=== PATIENT | female | born 1960 | race Caucasian/White ===

== ENCOUNTER 2016-03-19 15:21 | Outpatient (CLI) | END 2016-03-19 15:22 | disposition home or self-care (01) ==

== ENCOUNTER 2016-06-25 08:24 | Outpatient (CLI) | payer OTHER | END 2016-06-25 08:25 | disposition home or self-care (01) | DX: Z12.31 Encounter for screening mammogram for malignant neoplasm of breast (principal) ==

== ENCOUNTER 2016-12-15 11:19 | Outpatient (CLI) | payer OTHER ==
[2016-12-15 11:39] LABS: BASOPHILS % (AUTO) 0.4 %; EOSINOPHILS % (AUTO) 0.6 %; HCT - HEMATOCRIT 40.3 % (37.0-47.0); HGB - HEMOGLOBIN 13.6 g/dL (12.0-16.0); LYMPHOCYTES # (AUTO) 1.7 10^3/uL (1.5-3.5); MEAN CORPUSCULAR HEMOGLOBIN 30.1 pg (27.0-31.0); MEAN CORPUSCULAR HGB CONC 33.8 g/dL (32.0-36.0); MEAN CORPUSCULAR VOLUME 89.1 fL (81.0-99.0); MEAN PLATELET VOLUME 7.3 fL (7.9-10.8); MONOCYTES # (AUTO) 0.4 10^3/uL (0.0-1.0); MONOCYTES % (AUTO) 4.4 %; NEUTROPHILS # (AUTO) 6.6 10^3/uL (1.5-6.6); NEUTROPHILS % (AUTO) 75.6 %; NUCLEATED RED BLOOD CELLS AUTO 0.1 /100WBC; RED BLOOD COUNT 4.53 10^6/uL (4.20-5.40); RED CELL DISTRIBUTION WIDTH 12.6 % (12.0-15.0); UNCORRECTED WHITE BLOOD COUNT 8.8 x10^3/uL; WHITE BLOOD COUNT 8.8 x10^3/uL (4.8-10.8)
[2016-12-15 11:58] LABS: ALBUMIN/GLOBULIN RATIO 1.4 (1.0-2.2); BILIRUBIN,TOTAL 0.8 mg/dL (0.2-1.0); CALCIUM 9.3 mg/dL (8.5-10.3); CREATININE 0.9 mg/dL (0.4-1.0); TOTAL PROTEIN 7.8 g/dL (6.7-8.2)
== END 2016-12-15 11:20 | disposition home or self-care (01) ==
LOC: LAB 11:19
PROVIDERS: ATTEND Family Medicine
DX: R07.89 Other chest pain (principal)
CPT/HCPCS: 36415; 80053; 84484; 85025

== ENCOUNTER 2017-12-05 07:10 | Outpatient (CLI) | payer OTHER ==
[2017-12-05 07:28] LABS: BASOPHILS % (AUTO) 0.3 %; EOSINOPHILS % (AUTO) 0.8 %; LYMPHOCYTES # (AUTO) 1.7 10^3/uL (1.5-3.5); LYMPHOCYTES % (AUTO) 33.7 %; MEAN CORPUSCULAR HEMOGLOBIN 30.3 pg (27.0-31.0); MEAN CORPUSCULAR HGB CONC 33.8 g/dL (32.0-36.0); MEAN CORPUSCULAR VOLUME 89.8 fL (81.0-99.0); MEAN PLATELET VOLUME 7.5 fL (7.9-10.8); MONOCYTES # (AUTO) 0.4 10^3/uL (0.0-1.0); MONOCYTES % (AUTO) 7.5 %; NEUTROPHILS # (AUTO) 2.9 10^3/uL (1.5-6.6); NEUTROPHILS % (AUTO) 57.7 %; PLT - PLATELET COUNT 205 10^3/uL (130-450); RED BLOOD COUNT 4.61 10^6/uL (4.20-5.40); RED CELL DISTRIBUTION WIDTH 12.8 % (12.0-15.0)
[2017-12-05 07:42] LABS: ALBUMIN 4.5 g/dL (3.2-5.5); ALBUMIN/GLOBULIN RATIO 1.4 (1.0-2.2); ALKALINE PHOSPHATASE 51 IU/L (42-121); ALT ALANINE AMINOTRANSFERASE 19 IU/L (10-60); AST ASPARTATE AMINOTRANSFERASE 21 IU/L (10-42); BILIRUBIN,TOTAL 0.6 mg/dL (0.2-1.0); BUN - BLOOD UREA NITROGEN 12 mg/dL (6-20); CALCIUM 9.2 mg/dL (8.5-10.3); CARBON DIOXIDE - CO2 31 mmol/L (21-32); CHLORIDE 103 mmol/L (101-111); CHOLESTEROL 191 mg/dL; CREATININE 0.8 mg/dL (0.4-1.0); GFR - MDRD 74 (>89); GLUCOSE 112 mg/dL (70-100); HDL CHOLESTEROL 48 mg/dL; LDL CHOLESTEROL,CALCULATED 123 mg/dL; LDL/HDL RATIO 2.6 (<4.4); SODIUM 141 mmol/L (135-145); TOTAL PROTEIN 7.8 g/dL (6.7-8.2); VLDL CHOLESTEROL 20 mg/dL
[2017-12-05 08:03] LABS: HEMOGLOBIN A1C 0.55 g/dL; HEMOGLOBIN A1C % 5.5 % (4.6-6.2)
== END 2017-12-05 07:11 | disposition home or self-care (01) ==
LOC: LAB 07:10
PROVIDERS: ATTEND Family Medicine
DX: Z00.00 Encounter for general adult medical examination without abnormal findings (principal); R73.01 Impaired fasting glucose
CPT/HCPCS: 36415; 80053; 80061; 83036; 83721; 84443; 85025

== ENCOUNTER 2018-02-24 09:40 | Outpatient (CLI) | payer OTHER ==
[2018-02-24] MEDS ORDERED: AMINOPHYLLINE 250 MG/10 ML VIAL IV ONE (09:41)
[2018-02-24] MEDS ORDERED: REGADENOSON 0.4 MG/5 ML SYRINGE IVP ONE ×2 (12:03→16:00)
--- NOTE | 2018-02-24 14:38 | CARDIAC PROCEDURE NOTE ---
DATE OF SERVICE: 02/24/2018 Physician: Iva Morris MD, [facility] INDICATION: Chest pain. CARDIAC RISK FACTORS 1. Former smoker. 2. Possible postmenopausal status. SUMMARY: After signing informed consent, the patient underwent a Lexiscan pharmaceutical stress test with nuclear myocardial perfusion imaging. Resting heart rate: 56, Peak heart rate: 83. Resting blood pressure: 110/72, Peak blood pressure: 118/65. The patient underwent Lexiscan infusion per protocol. She developed headache and nausea symptoms. There was no chest pain or shortness of breath. Aminophylline 50 mg IV was given in recovery to reverse her symptoms. RESTING EKG: Sinus bradycardia at a rate of 52, QS waves V1 and V2, ST segment depressions in leads III and aVF, biphasic/flat T-waves in leads III, F, and V4 through V6. PEAK EKG: New T-wave inversion in leads V4 through V6. These changes reverted to baseline after 5 minutes. IMPRESSION 1. Abnormal resting EKG with possible old anteroseptal myocardial infarction. 2. Ischemic changes by EKG criteria on this pharmaceutical stress test. 3. Nuclear images reported separately. cc: Mian Cook DO TD: 02/24/2018 14:19 MTDD
--- NOTE | 2018-02-24 16:25 | Nuclear Medicine Report ---
Reason: CHEST PAIN Procedure Date: 02/24/2018 Accession Number: [id number] / [id number] Procedure: NM - Myocardial Perfusion STR/RST CPT Code: FULL RESULT: EXAM: SINGLE-ISOTOPE PHARMACOLOGICAL STRESS TEST WITH REGADENOSON. SINGLE-ISOTOPE AND ONE-DAY REST/STRESS MYOCARDIAL PERFUSION SCANS WITH TOMOGRAPHIC IMAGING, QUANTITATIVE ANALYSIS, WALL MOTION ANALYSIS AND CALCULATION OF EJECTION FRACTION. EXAM DATE: 02/24/2018 04:02 PM. CLINICAL HISTORY: CHEST PAIN. COMPARISON: None. TECHNIQUE: After the intravenous administration of 10.8 mCi of Tc-99m sestamibi, a rest myocardial perfusion scan was done with tomography. Motion correction was applied when appropriate. After an appropriate delay, pharmacological stress was performed with the infusion of 0.4 mg regadenoson per protocol. According to protocol, 42.9 mCi of Tc-99m sestamibi was injected for stress myocardial perfusion scan. Motion correction was applied when appropriate. Gated tomographic images were obtained for wall motion analysis and computation of left ventricular ejection fraction. FINDINGS: There is a moderate severity fixed defect in the mid to distal anterior wall. No additional convincing fixed or reversible perfusion defects. Computer analysis: Summed stress score 8 Summed rest score 1 Summed difference score 7 Wall motion analysis demonstrates no focal wall motion abnormality. The left ventricular end-diastolic volume is 74 cc. The left ventricular end-systolic volume is 24 cc. The left ventricular ejection fraction is calculated to be 67%. IMPRESSION: 1. Moderate severity fixed defect in the mid to distal anterior wall. No additional convincing fixed or reversible perfusion defects on visual analysis. 2. Left ventricular ejection fraction of 67%. 3. Normal segmental and global wall motion. 4. Normal left ventricular cavity size, no change with stress. 5. Based on computer analysis, mildly abnormal study with moderate ischemia. RADIA
== END 2018-02-24 09:41 | disposition home or self-care (01) ==
LOC: DI 09:40
PROVIDERS: ATTEND Family Medicine
DX: R07.9 Chest pain, unspecified (principal); R94.31 Abnormal electrocardiogram [ECG] [EKG]
CPT/HCPCS: 78452; 93017; A9500; J2785

== ENCOUNTER 2019-01-12 07:13 | Outpatient (CLI) | payer OTHER ==
[2019-01-12 07:53] LABS: ALBUMIN 4.4 g/dL (3.2-5.5); ALBUMIN/GLOBULIN RATIO 1.4 (1.0-2.2); ALKALINE PHOSPHATASE 58 IU/L (42-121); ALT ALANINE AMINOTRANSFERASE 21 IU/L (10-60); AST ASPARTATE AMINOTRANSFERASE 20 IU/L (10-42); BILIRUBIN,TOTAL 0.6 mg/dL (0.2-1.0); BUN - BLOOD UREA NITROGEN 16 mg/dL (6-20); CALCIUM 8.9 mg/dL (8.5-10.3); CARBON DIOXIDE - CO2 31 mmol/L (21-32); CHLORIDE 99 mmol/L (101-111); CHOL/HDL RATIO 3.6 (<4.4); CHOLESTEROL 193 mg/dL; CREATININE 0.7 mg/dL (0.4-1.0); GFR - MDRD 86 (>89); GLUCOSE 101 mg/dL (70-100); HDL CHOLESTEROL 54 mg/dL; LDL CHOLESTEROL,CALCULATED 125 mg/dL; LDL/HDL RATIO 2.3 (<4.4); SODIUM 137 mmol/L (135-145); TOTAL PROTEIN 7.6 g/dL (6.7-8.2); VLDL CHOLESTEROL 14 mg/dL
[2019-01-12 07:54] LABS: HB2 TOTAL 14.5 g/dL; HEMOGLOBIN A1C 0.51 g/dL; HEMOGLOBIN A1C % 5.4 % (4.6-6.2)
[2019-01-12 08:01] LABS: BASOPHILS % (AUTO) 0.5 %; EOSINOPHILS # (AUTO) 0.1 10^3/uL (0.0-0.7); EOSINOPHILS % (AUTO) 1.1 %; HGB - HEMOGLOBIN 13.7 g/dL (12.0-16.0); LYMPHOCYTES # (AUTO) 1.6 10^3/uL (1.5-3.5); LYMPHOCYTES % (AUTO) 36.1 %; MEAN CORPUSCULAR HEMOGLOBIN 29.9 pg (27.0-31.0); MEAN CORPUSCULAR HGB CONC 32.1 g/dL (32.0-36.0); MEAN CORPUSCULAR VOLUME 93.2 fL (81.0-99.0); MEAN PLATELET VOLUME 9.4 fL (7.9-10.8); MONOCYTES # (AUTO) 0.3 10^3/uL (0.0-1.0); MONOCYTES % (AUTO) 7.1 %; NEUTROPHILS # (AUTO) 2.4 10^3/uL (1.5-6.6); PLT - PLATELET COUNT 192 10^3/uL (130-450); RED BLOOD COUNT 4.58 10^6/uL (4.20-5.40); RED CELL DISTRIBUTION WIDTH 12.3 % (12.0-15.0); WHITE BLOOD COUNT 4.4 x10^3/uL (4.8-10.8)
== END 2019-01-12 07:14 | disposition home or self-care (01) ==
LOC: LAB 07:13
PROVIDERS: ATTEND Family Medicine
DX: E78.1 Pure hyperglyceridemia (principal); F10.99 Alcohol use, unspecified with unspecified alcohol-induced disorder; R73.01 Impaired fasting glucose
CPT/HCPCS: 36415; 80053; 80061; 83036; 83721; 84443; 85025

== ENCOUNTER 2019-04-04 08:16 | Outpatient (CLI) | payer OTHER ==
--- NOTE | 2019-04-04 11:31 | Mammography Report ---
Reason: ROUTINE MAMMO Procedure Date: 04/04/2019 Accession Number: [id number] / [id number] Procedure: COLLETTE - Screening Mammo w/Willy CPT Code: Final Report FULL RESULT: EXAM: Screening Mammo w/Willy DATE: 04/04/2019 8:53 AM CLINICAL HISTORY: History of benign left breast biopsy. For routine screening. TECHNIQUE: (B) - Bilateral CC and MLO views were obtained. COMPARISON: 06/25/2016, 05/20/2015, 04/04/2014, 06/23/2012, 05/09/2010. PARENCHYMAL PATTERN: (A) - The breasts demonstrate scattered fibroglandular densities bilaterally. FINDINGS: No significant interval change. There are no suspicious masses, calcifications, or areas of distortion. IMPRESSION: Negative examination. BI-RADS category 1. RECOMMENDATION: (ANNUAL) - Recommend routine annual screening mammography. BI-RADS CATEGORY: (1) - Negative. STANDARD QUALIFYING STATEMENTS: 1. This examination was not reviewed with the aid of Computer-Aided Detection (CAD). 2. A negative or benign imaging report should not preclude biopsy if clinically suspicious findings are present. 3. Dense breasts may obscure an underlying neoplasm. 4. This examination was reviewed with the aid of 3D breast imaging (tomosynthesis).
== END 2019-04-04 08:17 | disposition home or self-care (01) ==
LOC: DI 08:16
DX: Z12.31 Encounter for screening mammogram for malignant neoplasm of breast (principal)
CPT/HCPCS: 77063; 77067

== ENCOUNTER 2019-09-30 14:42 | Emergency (ER) | payer OTHER ==
[2019-09-30] MEDS ORDERED: LIDOCAINE OINTMENT 5% 35.44 GM TUBE TOP STA (14:58)
[2019-09-30] MEDS ORDERED: TETANUS/DIPHTHERIA/PERTUSSIS 0.5 ML SYRINGE IM ONE (14:58)
--- NOTE | 2019-09-30 15:00 | ED Physician Documentation ---
PD HPI MAJOR BURN - Stated complaint Stated Complaint: LT HAND INJ - Chief complaint Chief Complaint: Burn - History obtained from History obtained from: Patient (Left-handed woman with unknown tetanus status was working at home and grabbed part of the lawnmower which was hot and has berkowitz on her left hand. Pain is severe but note that she is driving.) Review of Systems Constitutional: reports: Reviewed and negative Throat: reports: Reviewed and negative Cardiac: reports: Reviewed and negative Respiratory: reports: Reviewed and negative PD PAST MEDICAL HISTORY - Past Medical History Psych: Depression - Past Surgical History Past Surgical History: No - Present Medications Home Medications: Ambulatory Orders Medication Instructions Recorded Confirmed PARoxetine [Paxil] 30 mg PO DAILY 09/05/13 03/28/15 Hydrocodone/Acetaminophen 1 - 2 each PO Q6H PRN #10 tablet 09/30/19 [Hydrocodon-Acetaminophen 5-325] - Allergies Allergies/Adverse Reactions: Allergies Allergy/AdvReac Type Severity Reaction Status Date / Time No Known Drug Allergies Allergy Verified 09/30/19 14:46 - Social History Does the pt smoke?: No Smoking Status: Never smoker Does the pt drink ETOH?: No Does the pt have substance abuse?: No - Immunizations Immunizations are current?: Yes PD ED PE NORMAL - Vitals Vital signs reviewed: Yes - General General: Alert and oriented X 3, No acute distress - Extremities Extremities: Other (There is a 1cm round burn on the pulp of the left index finger, second-degree. There is a shallow second-degree burn on the palmar side also about 1 cm near the second MCP. There are scattered areas of first-degree burn on the palm as well.) - Neuro Neuro: Alert and oriented X 3, Normal speech Results - Vitals Vitals: Vital Signs - 24 hr 09/30/19 14:46 Temperature 36.4 C L Heart Rate 70 Respiratory 16 Rate Blood Pressure 142/91 H O2 Saturation 96 Oxygen O2 Source Room air PD MEDICAL DECISION MAKING - ED course ED course: 58-year-old woman with spotty small first and second-degree berkowitz on the left hand. The worst of which is on the pulp of the left index finger but only about 1 cm. We discussed wound care, we updated tetanus, discussed pain control. Departure - Departure Disposition: 01 Home, Self Care Clinical Impression: Burn of hand Qualifiers: Encounter type: initial encounter Burn of hand location: multiple sites Laterality: left Burn degree: partial thickness (2nd degree) Qualified Code(s): T23.292A - Burn of second degree of multiple sites of left wrist and hand, initial encounter Condition: Good Record reviewed to determine appropriate education?: Yes Instructions: ED Burn D 2nd Prescriptions: Hydrocodone/Acetaminophen [Hydrocodon-Acetaminophen 5-325] 1 - 2 each PO Q6H PRN #10 tablet PRN Reason: pain Comments: I suspect you will have excellent healing of the small berkowitz. Expect pain to be significant for a day or 2 but after that you should not need any more prescription pain medication. For wound care you can simply wash with soap and water and keep the worst areas covered with Band-Aids.
[2019-09-30 15:31] VITALS: BP 139/89
== END 2019-09-30 15:37 | disposition home or self-care (01) ==
LOC: ED 14:42
DX: T23.252A Burn of second degree of left palm, initial encounter (principal); T23.222A Burn of second degree of single left finger (nail) except thumb, initial encounter; X19.XXXA Contact with other heat and hot substances, initial encounter; Y93.H2 Activity, gardening and landscaping; Y92.007 Garden or yard of unspecified non-institutional (private) residence as the place of occurrence of the external cause; Z23 Encounter for immunization
CPT/HCPCS: 90471; 90715; 99283; A9270

== ENCOUNTER 2020-01-02 12:18 | Outpatient (CLI) | payer OTHER ==
--- NOTE | 2020-01-02 12:42 | XRAY Report ---
PROCEDURE: Shoulder 2 View LT INDICATIONS: LEFT SHOULDER PAIN TECHNIQUE: 2 views of the shoulder were acquired. COMPARISON: None. FINDINGS: Bones: No acute fractures or dislocations. There are mild hypertrophic osteoarthritic changes of the left acromioclavicular joint. Coracoclavicular and acromioclavicular intervals are maintained. No barger spicious bony lesions. Visualized ribs appear intact. Soft tissues: No suspicious soft tissue calcifications. IMPRESSION: Mild left acromioclavicular osteoarthrosis. Reviewed by: Jeison Sun MD on 01/02/2020 12:41 PM PDT Approved by: Jeison Sun MD on 01/02/2020 12:41 PM PDT Station ID: [id number]
== END 2020-01-02 23:59 | disposition home or self-care (01) ==
LOC: DI.WCP 12:18
PROVIDERS: ATTEND Family Medicine
DX: M19.012 Primary osteoarthritis, left shoulder (principal)

== ENCOUNTER 2020-01-23 08:00 | Outpatient (CLI) | payer OTHER ==
[2020-01-23 12:44] LABS: BASOPHILS % (AUTO) 0.4 %; EOSINOPHILS % (AUTO) 0.8 %; HGB - HEMOGLOBIN 13.1 g/dL (12.0-16.0); LYMPHOCYTES # (AUTO) 1.7 10^3/uL (1.5-3.5); LYMPHOCYTES % (AUTO) 33.8 %; MEAN CORPUSCULAR HEMOGLOBIN 29.8 pg (27.0-31.0); MEAN CORPUSCULAR HGB CONC 31.8 g/dL (32.0-36.0); MEAN CORPUSCULAR VOLUME 93.6 fL (81.0-99.0); MEAN PLATELET VOLUME 9.9 fL (7.9-10.8); MONOCYTES # (AUTO) 0.3 10^3/uL (0.0-1.0); MONOCYTES % (AUTO) 5.9 %; NEUTROPHILS # (AUTO) 2.9 10^3/uL (1.5-6.6); NEUTROPHILS % (AUTO) 58.7 %; PLT - PLATELET COUNT 205 10^3/uL (130-450); RED CELL DISTRIBUTION WIDTH 12.5 % (12.0-15.0); WHITE BLOOD COUNT 4.9 x10^3/uL (4.8-10.8)
[2020-01-23 12:58] LABS: ALBUMIN/GLOBULIN RATIO 1.4 (1.0-2.2); ALKALINE PHOSPHATASE 53 IU/L (42-121); ALT ALANINE AMINOTRANSFERASE 20 IU/L (10-60); AST ASPARTATE AMINOTRANSFERASE 21 IU/L (10-42); BILIRUBIN,TOTAL 0.9 mg/dL (0.2-1.0); BUN - BLOOD UREA NITROGEN 15 mg/dL (6-20); CALCIUM 8.9 mg/dL (8.5-10.3); CARBON DIOXIDE - CO2 28 mmol/L (21-32); CHLORIDE 101 mmol/L (101-111); CHOL/HDL RATIO 3.6 (<4.4); CHOLESTEROL 173 mg/dL; CREATININE 0.7 mg/dL (0.4-1.0); GLUCOSE 91 mg/dL (70-100); HDL CHOLESTEROL 48 mg/dL; LDL CHOLESTEROL,CALCULATED 105 mg/dL; LDL/HDL RATIO 2.2 (<4.4); SODIUM 138 mmol/L (135-145); TOTAL PROTEIN 6.9 g/dL (6.7-8.2); VLDL CHOLESTEROL 20 mg/dL
[2020-01-23 13:54] LABS: HEMOGLOBIN A1c% 5.2 % (4.27-6.07)
== END 2020-01-23 23:59 | disposition home or self-care (01) ==
LOC: LAB.WCP 08:00
PROVIDERS: ATTEND Family Medicine
DX: Z00.00 Encounter for general adult medical examination without abnormal findings (principal); E78.1 Pure hyperglyceridemia
CPT/HCPCS: 36415; 80053; 80061; 83036; 83721; 84443; 85025

== ENCOUNTER 2020-09-14 16:51 | Emergency (ER) | payer OTHER ==
--- NOTE | 2020-09-14 17:49 | XRAY Report ---
PROCEDURE: Foot 3 View RT INDICATIONS: Trauma TECHNIQUE: 3 views of the foot were acquired. COMPARISON: None FINDINGS: Bones: No fractures or dislocations. No suspicious bony lesions. Soft tissues: No tibiotalar joint effusion. Achilles tendon appears normal. IMPRESSION: No evidence acute bony abnormality of the right foot. Reviewed by: Josh Rodrigez MD on 09/14/2020 4:47 PM AKGISSEL Approved by: Josh Rodrigez MD on 09/14/2020 4:47 PM AKDT Station ID: [id number]
--- NOTE | 2020-09-14 18:40 | ED Physician Documentation ---
History of Present Illness - Stated complaint Stated Complaint: RT FOOT PX - Chief complaint Chief Complaint: Trauma Ext - Additonal information Additional information: 59-year-old female Presents to the emergency department for evaluation of acute right foot pain after missing a step and twisting her foot. She did not fall or strike her head. No history of previous injury to the foot. And difficulty bearing weight especially on the medial portion Review of Systems Constitutional: denies: Fever, Chills Eyes: reports: Reviewed and negative Ears: reports: Reviewed and negative Nose: reports: Reviewed and negative Throat: reports: Reviewed and negative Cardiac: reports: Reviewed and negative Respiratory: reports: Reviewed and negative Musculoskeletal: reports: Joint pain (Right foot) PD PAST MEDICAL HISTORY - Past Medical History Cardiovascular: None Respiratory: None Neuro: Migraines Endocrine/Autoimmune: None GI: None MANAGEMENT CONSULTANT: None : None HEENT: None Psych: Depression Musculoskeletal: None Derm: None - Past Surgical History Past Surgical History: Yes /MANAGEMENT CONSULTANT: Other - Present Medications Home Medications: Ambulatory Orders Medication Instructions Recorded Confirmed PARoxetine [Paxil] 30 mg PO DAILY 09/05/13 03/28/15 Hydrocodone/Acetaminophen 1 - 2 each PO Q6H PRN #10 tablet 09/30/19 [Hydrocodon-Acetaminophen 5-325] - Allergies Allergies/Adverse Reactions: Allergies Allergy/AdvReac Type Severity Reaction Status Date / Time No Known Drug Allergies Allergy Verified 09/14/20 17:13 - Social History Does the pt smoke?: No Smoking Status: Former smoker Does the pt drink ETOH?: No Does the pt have substance abuse?: No - Immunizations Immunizations are current?: Yes PD ED PE EXPANDED - Extremities Extremities: Right foot (Mild tenderness in the medial portion of the right foot especially the arch without deformity. No swelling or ecchymosis. Patient is able to bear weight on the ball and heel of her foot but not at the same time. 2+ DP pulse.) Results - Vitals Vitals: Vital Signs - 24 hr 09/14/20 17:10 Temperature 36.3 C L Heart Rate 68 Respiratory 16 Rate Blood Pressure 120/81 H O2 Saturation 97 Oxygen O2 Source Room air - Rads (name of study) right foot Radiology: Final report received (Acute fracture dislocation) PD MEDICAL DECISION MAKING - ED course Complexity details: reviewed results ED course: Acute right foot pain after missing a step. She twisted the foot. X-ray without obvious fracture pathology. Has difficulty bearing weight on the medial portion of the foot. I do suspect sprain over occult fracture. Advised Anshu wrap and rice precautions. Follow-up with PCP in 7 to 10 days if not markedly better. Impression: Right foot sprain Departure - Departure Disposition: Home, Self Care Condition: Stable Record reviewed to determine appropriate education?: Yes Instructions: ED Sprain Foot Comments: Trisha the x-ray of your foot is normal. I suspect that you sprained the foot when you missed stepped. Typically sprains like this get better in 7 to 10 day s. Please use an Anshu wrap on the foot to help support it and crutches at home. Using ibuprofen or Tylenol should help with discomfort. If symptoms are not markedly better in 7 to 10 days the foot should be debbie-rayed to rule out an occult fracture.
[2020-09-14 18:45] VITALS: BP 135/84
== END 2020-09-14 18:56 | disposition home or self-care (01) ==
LOC: ED 16:51
DX: S93.601A Unspecified sprain of right foot, initial encounter (principal); X50.1XXA Overexertion from prolonged static or awkward postures, initial encounter; Y93.01 Activity, walking, marching and hiking; Z87.891 Personal history of nicotine dependence
CPT/HCPCS: 99281; 99283

== ENCOUNTER 2020-10-29 08:00 | Outpatient (CLI) | payer OTHER ==
[2020-10-29 20:37] LABS: ESTIMATED AVERAGE GLUCOSE 114 mg/dL (70-100); HEMOGLOBIN A1c% 5.6 % (4.27-6.07)
== END 2020-10-29 23:59 | disposition home or self-care (01) ==
LOC: LAB.WCP 08:00
PROVIDERS: ATTEND Nurse Practitioner
DX: R73.01 Impaired fasting glucose (principal)
CPT/HCPCS: 36415; 83036

== ENCOUNTER 2021-02-20 08:00 | Outpatient (CLI) | payer OTHER | END 2021-02-20 23:59 | LOC: LAB.N 08:00 | PROVIDERS: ATTEND Physician Assistant | DX: R05.9 Cough, unspecified (principal); Z20.822 Contact with and (suspected) exposure to COVID-19 ==

== ENCOUNTER 2021-06-16 07:31 | Outpatient (CLI) | payer OTHER ==
[2021-06-16 07:51] LABS: BASOPHILS % (AUTO) 0.2 %; EOSINOPHILS # (AUTO) 0.1 10^3/uL (0.0-0.7); EOSINOPHILS % (AUTO) 0.9 %; HCT - HEMATOCRIT 43.8 % (37.0-47.0); HGB - HEMOGLOBIN 14.7 g/dL (12.0-16.0); LYMPHOCYTES # (AUTO) 1.7 10^3/uL (1.5-3.5); MEAN CORPUSCULAR HEMOGLOBIN 30.4 pg (27.0-31.0); MEAN CORPUSCULAR HGB CONC 33.6 g/dL (32.0-36.0); MEAN CORPUSCULAR VOLUME 90.5 fL (81.0-99.0); MONOCYTES # (AUTO) 0.4 10^3/uL (0.0-1.0); MONOCYTES % (AUTO) 7.6 %; NEUTROPHILS # (AUTO) 3.3 10^3/uL (1.5-6.6); NEUTROPHILS % (AUTO) 59.9 %; PLT - PLATELET COUNT 207 10^3/uL (130-450); RED BLOOD COUNT 4.84 10^6/uL (4.20-5.40); WHITE BLOOD COUNT 5.5 x10^3/uL (4.8-10.8)
[2021-06-16 08:08] LABS: ALBUMIN 4.3 g/dL (3.2-5.5); ALBUMIN/GLOBULIN RATIO 1.2 (1.0-2.2); ALKALINE PHOSPHATASE 50 IU/L (42-121); ALT ALANINE AMINOTRANSFERASE 23 IU/L (10-60); AST ASPARTATE AMINOTRANSFERASE 21 IU/L (10-42); BILIRUBIN,TOTAL 0.8 mg/dL (0.2-1.0); BUN - BLOOD UREA NITROGEN 20 mg/dL (6-20); CALCIUM 9.3 mg/dL (8.5-10.3); CARBON DIOXIDE - CO2 27 mmol/L (21-32); CHLORIDE 99 mmol/L (101-111); CHOLESTEROL 252 mg/dL; CREATININE 0.7 mg/dL (0.4-1.0); GFR - MDRD 85 (>89); GLUCOSE 111 mg/dL (70-100); HDL CHOLESTEROL 63 mg/dL; LDL CHOLESTEROL,CALCULATED 169 mg/dL; LDL/HDL RATIO 2.7 (<4.4); POTASSIUM 4.1 mmol/L (3.5-5.0); SODIUM 134 mmol/L (135-145); TOTAL PROTEIN 7.8 g/dL (6.7-8.2); TRIGLYCERIDES 100 mg/dL; VLDL CHOLESTEROL 20 mg/dL
[2021-06-16 08:19] LABS: THYROID STIMULATING HORMONE 1.93 uIU/mL (0.34-5.60)
[2021-06-16 12:52] LABS: ESTIMATED AVERAGE GLUCOSE 117 mg/dL (70-100); HEMOGLOBIN A1c% 5.7 % (4.27-6.07)
== END 2021-06-16 07:32 | disposition home or self-care (01) ==
LOC: LAB 07:31
PROVIDERS: ATTEND Family Medicine
DX: Z00.00 Encounter for general adult medical examination without abnormal findings (principal); R73.01 Impaired fasting glucose; E78.1 Pure hyperglyceridemia
CPT/HCPCS: 36415; 80053; 80061; 83036; 83721; 84443; 85025

== ENCOUNTER 2021-09-25 07:55 | Day surgery (SDC) | payer OTHER ==
[2021-09-25] MEDS ORDERED: LIDOCAINE-MPF 2% 5 ML VIAL ONE (08:07)
[2021-09-25] MEDS ORDERED: PROPOFOL 500 MG/50 ML 500 MG/50 ML VIAL ONE (08:07)
--- NOTE | 2021-09-25 08:12 | ANESTHESIA ---
Pre-Anesthesia VS, & Labs - Diagnosis screening - Procedure colonoscopy Height: 5 ft 9 in - NPO >8 hours - Is Patient ?: No - Lab Results Lab results reviewed: Yes Home Medications and Allergies Home Medications: Ambulatory Orders No Known Home Medications 09/25/21 Allergies/Adverse Reactions: Allergies Allergy/AdvReac Type Severity Reaction Status Date / Time No Known Drug Allergies Allergy Verified 09/14/20 17:13 Anes History & Medical History - Anesthetic History Anesthesia Complications: reports: No previous complications Family history of Anesthesia Complications: Denies Family history of Malignant Hyperthermia: Denies - Medical History Cardiovascular: reports: None Pulmonary: reports: None Gastrointestinal: reports: None Urinary: reports: None Neuro: reports: Migraines Musculoskeletal: reports: None Endocrine/Autoimmune: reports: None Blood Disorders: reports: None Skin: reports: None Smoking Status: Former smoker History of Cancer?: No - Surgical History General: reports: Colonoscopy Gynecologic: reports: Other Exam General: Alert, Oriented x3, Cooperative Dental: WNL Mouth Openin Fingerbreadth Neck Mobility: Normal Mallampati classification: II Thyromental Distance: 4-6 cm Respiratory: Lungs clear, Normal breath sounds, No respiratory distress Cardiovascular: Regular rate Neurological: Normal speech Mental/Cognitive Status: Alert/Oriented X3, Normal for patient Cognitive Status: Within normal limits Plan Anesthesia Type: Total IV Consent for Procedure(s) Verified and Reviewed: Yes Code Status: Attempt Resuscitation ASA classification: 2-Mild systemic disease Is this case an emergency?: No
[2021-09-25] MEDS ORDERED: LACTATED RINGERS 1,000 ML IV ONE ×2 (08:18→09:22)
--- NOTE | 2021-09-25 09:33 | ANESTHESIA POST OP EVALUATION ---
Anesthesia Post Eval - Post Anesthesia Eval Vitals: Last Vital Signs Temp 37 C 09/25/21 09:22 Pulse 59 L 09/25/21 09:26 Resp 14 09/25/21 09:26 BP 118/74 09/25/21 09:26 Pulse Ox 100 09/25/21 09:26 CV Function Including HR & BP: Stable Pain Control: Satisfactory Nausea & Vomiting: Negative Mental Status: Baseline Respiratory Status: Airway Patent Hydration Status: Satisfactory Anesthesia Complications: None
[2021-09-25 09:48] VITALS: BP 146/84
== END 2021-09-25 07:56 | disposition home or self-care (01) ==
LOC: SDS 07:55
PROVIDERS: ATTEND Surgery
PROC: 0DBL8ZX Excision of Transverse Colon, Via Natural or Artificial Opening Endoscopic, Diagnostic (ICD-10-PCS; 2021-09-25)
PROC: 0DBN8ZX Excision of Sigmoid Colon, Via Natural or Artificial Opening Endoscopic, Diagnostic (ICD-10-PCS; 2021-09-25)
PROC: 0DBM8ZX Excision of Descending Colon, Via Natural or Artificial Opening Endoscopic, Diagnostic (ICD-10-PCS; principal; 2021-09-25 09:15)
DX: Z12.11 Encounter for screening for malignant neoplasm of colon (principal); D12.3 Benign neoplasm of transverse colon; D12.4 Benign neoplasm of descending colon; D12.5 Benign neoplasm of sigmoid colon; K63.5 Polyp of colon; K57.30 Diverticulosis of large intestine without perforation or abscess without bleeding; Z80.0 Family history of malignant neoplasm of digestive organs; Z80.1 Family history of malignant neoplasm of trachea, bronchus and lung
CPT/HCPCS: 45380; 45385; J7120

== ENCOUNTER 2021-12-08 14:20 | Outpatient (CLI) | payer OTHER | END 2021-12-08 14:21 | disposition home or self-care (01) | LOC: DI 14:20 | DX: Z53.9 Procedure and treatment not carried out, unspecified reason (principal) ==

== ENCOUNTER 2022-01-19 10:07 | Outpatient (CLI) | payer OTHER ==
--- NOTE | 2022-01-20 09:13 | Mammography Report ---
BILATERAL DIGITAL SCREENING MAMMOGRAM 3D/2D: 01/19/2022 CLINICAL: Routine screening. Comparison is made to exams dated: 04/04/2019 mammogram, 06/25/2016 mammogram, 05/20/2015 mammogram, 03/16 mammogram, and 06/23/2012 mammogram - [facility]. Both breasts are heterogeneously dense, which may obscure small masses (category c / 51-75% glandular tissue). There is a possible developing irregular high density asymmetry in the left breast middle depth super ior region seen on the mediolateral oblique view only. This is more prominent. No other significant masses, calcifications, or other findings are seen in either breast. IMPRESSION: INCOMPLETE: NEEDS ADDITIONAL IMAGING EVALUATION The possible developing irregular high density asymmetry in the left breast is indeterminate. Additi onal views with possible ultrasound are recommended. Based on the Tyrer Cuzick model (a risk assessment model) the patients lifetime risk is 10.6% and he r 10 year risk is 4.6%. According to the ACR, ACS, and NCCN guidelines, an annual breast MRI exam abimael ng with mammogram is recommended if the patients lifetime risk is 20% or greater. This exam was interpreted at Station ID: [id number]. NOTE: For mammograms, a report in lay terms will be sent to the patient. Approximately 15% of breast malignancies will not be visualized mammographically. In the management of a palpable breast mass, a negative mammogram must not discourage biopsy of a clinically suspicious lesion. Electronically Signed By: Tamika ingram/penrad:01/19/2022 20:38:13 ACR BI-RADS Category 0: Incomplete 3340F PARENCHYMAL PATTERN: (D) - The breast(s) demonstrate(s) heterogeneously dense fibroglandular parenchy ma. BI-RADS CATEGORY: (0) - 0 Mammo and [place] [id number] Immediate follow-up LATERALITY: (B)
== END 2022-01-19 10:08 | disposition home or self-care (01) ==
LOC: DI 10:07
DX: Z12.31 Encounter for screening mammogram for malignant neoplasm of breast (principal)

== ENCOUNTER 2022-02-13 10:43 | Outpatient (CLI) | payer OTHER ==
--- NOTE | 2022-02-16 11:13 | Mammography Report ---
UNILATERAL LEFT DIGITAL DIAGNOSTIC MAMMOGRAM 3D/2D WITH SPOT COMPRESSION: 02/13/2022 CLINICAL: Patient returns today to evaluate an asymmetry in the left breast. Comparison is made to exams dated: 04/04/2019 mammogram, 06/25/2016 mammogram, 05/20/2015 mammogram, 03/16 mammogram, and 06/23/2012 mammogram - [facility]. The left breast is heterogeneously dense, which may obscure small masses (category c / 51-75% glandul ar tissue). There is a possible irregular equal density asymmetry in the left breast middle depth central to the nipple seen on the mediolateral oblique view only. This is not seen in additional views. This is le ss prominent. No other significant masses or calcifications are seen in the breast. IMPRESSION: INCOMPLETE: NEEDS ADDITIONAL IMAGING EVALUATION The possible irregular equal density asymmetry in the left breast most likely is fibroglandular tissu e or a lymph node but remains indeterminate. An ultrasound is recommended. This was performed immed iately following this exam. Based on the Tyrer Cuzick model (a risk assessment model) the patients lifetime risk is 10.6% and he r 10 year risk is 4.6%. According to the ACR, ACS, and NCCN guidelines, an annual breast MRI exam abimael ng with mammogram is recommended if the patients lifetime risk is 20% or greater. This exam was interpreted at Station ID: [id number]. NOTE: For mammograms, a report in lay terms will be sent to the patient. Approximately 15% of breast malignancies will not be visualized mammographically. In the management of a palpable breast mass, a negative mammogram must not discourage biopsy of a clinically suspicious lesion. Electronically Signed By: Tamika ingram/:02/13/2022 11:23:19 ACR BI-RADS Category 0: Incomplete 3340F PARENCHYMAL PATTERN: (D) - The breast(s) demonstrate(s) heterogeneously dense fibroglandular parjoanne jacobson. BI-RADS CATEGORY: (0) - 0 Mammo and US [id number] Immediate follow-up LATERALITY: (B)
--- NOTE | 2022-02-16 11:13 | Ultrasound Report ---
LIMITED ULTRASOUND OF LEFT BREAST AND AXILLA: 02/13/2022 CLINICAL: Patient returns today to evaluate an asymmetry in the left breast. Comparison is made to exams dated: 02/13/2022 mammogram, 01/19/2022 mammogram, 04/04/2019 mammogram, mammogram, 05/20/2015 mammogram, and 04/04/2014 mammogram - [facility]. Color flow and real-time ultrasound of the left breast 3 o'clock, and axilla regions were performed. Tubbs scale images of the real-time examination were reviewed. There is a 0.5 cm x 0.3 cm x 0.3 cm oval mass in the left breast at 3 o'clock middle depth 6 cm from the nipple. This correlates smaller than estimated on mammography and may be incidental. Color flow imaging demonstrates that there is no vascularity present. There are no other suspicious sonographi c findings that would correlate with mammogram. IMPRESSION: PROBABLY BENIGN The 0.5 cm oval mass in the left breast resembles a lymph node and is probably benign. A follow-up left mammogram and an ultrasound in 6 months is recommended to demonstrate stability. Findings and recommendations were conveyed to the patient at time of exam. This exam was interpreted at Station ID: [id number]. Electronically Signed By: Tamika ingram/:02/13/2022 12:22:35 Ultrasound BI-RADS: 3 Probably benign BI-RADS CATEGORY: (3) - 3 Mammo and US [id number] 6 month follow-up LATERALITY: (L)
== END 2022-02-13 10:44 | disposition home or self-care (01) ==
LOC: DI 10:43
PROVIDERS: ATTEND Physician Assistant
DX: N63.25 Unspecified lump in the left breast, overlapping quadrants (principal)

== ENCOUNTER 2022-05-04 07:18 | Outpatient (CLI) | payer OTHER ==
[2022-05-04 07:29] LABS: BASOPHILS % (AUTO) 0.6 %; EOSINOPHILS # (AUTO) 0.1 10^3/uL (0.0-0.7); EOSINOPHILS % (AUTO) 1.3 %; HCT - HEMATOCRIT 44.9 % (37.0-47.0); HGB - HEMOGLOBIN 14.8 g/dL (12.0-16.0); LYMPHOCYTES # (AUTO) 1.7 10^3/uL (1.5-3.5); LYMPHOCYTES % (AUTO) 31.5 %; MEAN CORPUSCULAR HEMOGLOBIN 29.7 pg (27.0-31.0); MEAN CORPUSCULAR VOLUME 90.2 fL (81.0-99.0); MONOCYTES # (AUTO) 0.3 10^3/uL (0.0-1.0); MONOCYTES % (AUTO) 6.4 %; NEUTROPHILS # (AUTO) 3.2 10^3/uL (1.5-6.6); PLT - PLATELET COUNT 215 10^3/uL (130-450); RED BLOOD COUNT 4.98 10^6/uL (4.20-5.40); RED CELL DISTRIBUTION WIDTH 11.7 % (12.0-15.0); WHITE BLOOD COUNT 5.3 x10^3/uL (4.8-10.8)
[2022-05-04 07:54] LABS: ALBUMIN 4.2 g/dL (3.2-5.5); ALBUMIN/GLOBULIN RATIO 1.2 (1.0-2.2); ALKALINE PHOSPHATASE 51 IU/L (42-121); ALT ALANINE AMINOTRANSFERASE 24 IU/L (10-60); AST ASPARTATE AMINOTRANSFERASE 23 IU/L (10-42); BUN - BLOOD UREA NITROGEN 19 mg/dL (6-20); CALCIUM 9.4 mg/dL (8.5-10.3); CARBON DIOXIDE - CO2 30 mmol/L (21-32); CHLORIDE 100 mmol/L (101-111); CHOL/HDL RATIO 4.4 (<4.4); CHOLESTEROL 231 mg/dL; CREATININE 0.7 mg/dL (0.4-1.0); GFR - MDRD 85 (>89); GLUCOSE 107 mg/dL (70-100); HDL CHOLESTEROL 53 mg/dL; LDL CHOLESTEROL,CALCULATED 165 mg/dL; LDL/HDL RATIO 3.1 (<4.4); POTASSIUM 4.2 mmol/L (3.5-5.0); SODIUM 136 mmol/L (135-145); TOTAL PROTEIN 7.7 g/dL (6.7-8.2); TRIGLYCERIDES 65 mg/dL; VLDL CHOLESTEROL 13 mg/dL
[2022-05-04 07:57] LABS: THYROID STIMULATING HORMONE 1.71 uIU/mL (0.34-5.60)
[2022-05-04 12:36] LABS: ESTIMATED AVERAGE GLUCOSE 117 mg/dL (70-100); HEMOGLOBIN A1c% 5.7 % (4.27-6.07)
== END 2022-05-04 07:19 | disposition home or self-care (01) ==
LOC: LAB 07:18
PROVIDERS: ATTEND Physician Assistant
DX: E78.5 Hyperlipidemia, unspecified (principal); R73.01 Impaired fasting glucose; Z13.29 Encounter for screening for other suspected endocrine disorder
CPT/HCPCS: 36415; 80053; 80061; 83036; 83721; 84443; 85025

== ENCOUNTER 2022-11-04 07:42 | Outpatient (CLI) | payer OTHER ==
--- NOTE | 2022-11-05 11:46 | Ultrasound Report ---
LIMITED ULTRASOUND OF LEFT BREAST: 11/04/2022 CLINICAL: Patient returns for a 6 month follow up of the left breast. Comparison is made to exams dated: 02/13/2022 ultrasound, 02/13/2022 mammogram, 01/19/2022 mammogram, mammogram, 06/25/2016 mammogram, and 05/20/2015 mammogram - [facility]. Real-time ultrasound of the left breast 3 o'clock region was performed. Tubbs scale images of the marcus l-time examination were reviewed. No significant abnormalities were seen sonographically in the left breast. IMPRESSION: PROBABLY BENIGN No sonographic evidence of malignancy. No mass or cyst. A follow-up mammogram in 6 months is recommended to demonstrate stability of the left breast asymmetr y. Patient will be due for right mammogram at that time. Exam findings were conveyed to the patient. This exam was interpreted at Station ID: [id number]. Electronically Signed By: Brett Lara M.D. slc/:11/04/2022 10:11:32 Ultrasound BI-RADS: 3 Probably benign BI-RADS CATEGORY: (3) - 3 Mammogram [id number] 6 month follow-up LATERALITY: (B)
--- NOTE | 2022-11-05 11:46 | Mammography Report ---
UNILATERAL LEFT DIGITAL DIAGNOSTIC MAMMOGRAM 3D/2D: 11/04/2022 CLINICAL: Patient returns for a 6 month follow up of the left breast. Comparison is made to exams dated: 02/13/2022 mammogram, 01/19/2022 mammogram, 04/04/2019 mammogram, mammogram, 05/20/2015 mammogram, and 02/13/2022 ultrasound - [facility]. The left breast is heterogeneously dense, which may obscure small masses (category c / 51-75% glandul ar tissue). There is an asymmetry in the left breast posterior depth superior region seen on the mediolateral obl ique view only. This is less prominent. No other significant masses or calcifications are seen in the breast. IMPRESSION: INCOMPLETE: NEEDS ADDITIONAL IMAGING EVALUATION The asymmetry in the left breast most likely is fibroglandular tissue and is indeterminate. A targeted ultrasound is recommended and will immediately follow. Based on the Tyrer Cuzick model (a risk assessment model) the patients lifetime risk is 10.6% and he r 10 year risk is 4.6%. According to the ACR, ACS, and NCCN guidelines, an annual breast MRI exam abimael ng with mammogram is recommended if the patients lifetime risk is 20% or greater. This exam was interpreted at Station ID: [id number]. NOTE: For mammograms, a report in lay terms will be sent to the patient. Approximately 15% of breast malignancies will not be visualized mammographically. In the management of a palpable breast mass, a negative mammogram must not discourage biopsy of a clinically suspicious lesion. Electronically Signed By: Brett Lara M.D. slc/:11/04/2022 08:26:40 ACR BI-RADS Category 0: Incomplete 3340F PARENCHYMAL PATTERN: (D) - The breast(s) demonstrate(s) heterogeneously dense fibroglandular parenchy ma. BI-RADS CATEGORY: (0) - 0 Ultrasound [id number] Immediate follow-up LATERALITY: (B)
== END 2022-11-04 07:43 | disposition home or self-care (01) ==
LOC: DI 07:42
PROVIDERS: ATTEND Physician Assistant
DX: R92.8 Other abnormal and inconclusive findings on diagnostic imaging of breast (principal)

== ENCOUNTER 2022-11-10 14:16 | Outpatient (CLI) | payer OTHER ==
--- NOTE | 2022-11-10 17:39 | XRAY Report ---
PROCEDURE: Knee 3 View LT INDICATIONS: SPRAIN OF UNSPECIFIED SITE OF LEFT KNEE TECHNIQUE: 3 views of the left knee(s) were acquired. COMPARISON: None. FINDINGS: Bones: No fractures or dislocations. Mild to moderate tricompartmental osteoarthritis is seen more n otably in medial femoral tibial compartment. No patella subluxation. No suspicious bony lesions. Soft tissues: No knee joint effusion. No suspicious soft tissue calcifications or masses. IMPRESSION: No acute bony abnormality. Mild to moderate tricompartmental osteoarthritis more notably in medial femoral tibial compartment. Reviewed by: Ted Gandara MD on 11/10/2022 5:38 PM PDT Approved by: Ted Gandara MD on 11/10/2022 5:38 PM PDT Station ID: [id number]
== END 2022-11-10 14:17 | disposition home or self-care (01) ==
LOC: DI 14:16
PROVIDERS: ATTEND Emergency Medicine
DX: S83.92XA Sprain of unspecified site of left knee, initial encounter (principal); M17.12 Unilateral primary osteoarthritis, left knee

== ENCOUNTER 2023-02-03 08:11 | Outpatient (CLI) | payer OTHER ==
[2023-02-03 08:28] LABS: BASOPHILS % (AUTO) 0.5 %; EOSINOPHILS # (AUTO) 0.1 10^3/uL (0.0-0.7); EOSINOPHILS % (AUTO) 1.2 %; HCT - HEMATOCRIT 44.5 % (37.0-47.0); HGB - HEMOGLOBIN 14.4 g/dL (12.0-16.0); LYMPHOCYTES # (AUTO) 1.7 10^3/uL (1.5-3.5); LYMPHOCYTES % (AUTO) 28.7 %; MEAN CORPUSCULAR HEMOGLOBIN 29.1 pg (27.0-31.0); MEAN CORPUSCULAR HGB CONC 32.4 g/dL (32.0-36.0); MEAN CORPUSCULAR VOLUME 89.9 fL (81.0-99.0); MONOCYTES # (AUTO) 0.4 10^3/uL (0.0-1.0); MONOCYTES % (AUTO) 7.4 %; NEUTROPHILS # (AUTO) 3.6 10^3/uL (1.5-6.6); NEUTROPHILS % (AUTO) 61.9 %; PLT - PLATELET COUNT 236 10^3/uL (130-450); RED BLOOD COUNT 4.95 10^6/uL (4.20-5.40); RED CELL DISTRIBUTION WIDTH 12.1 % (12.0-15.0); WHITE BLOOD COUNT 5.8 x10^3/uL (4.8-10.8)
[2023-02-03 08:42] LABS: ALBUMIN 4.6 g/dL (3.2-5.5); ALBUMIN/GLOBULIN RATIO 1.7 (1.0-2.2); ALKALINE PHOSPHATASE 51 IU/L (42-121); ALT ALANINE AMINOTRANSFERASE 21 IU/L (10-60); AST ASPARTATE AMINOTRANSFERASE 20 IU/L (10-42); BILIRUBIN,TOTAL 0.7 mg/dL (0.2-1.0); BUN - BLOOD UREA NITROGEN 17 mg/dL (6-20); CALCIUM 9.5 mg/dL (8.5-10.3); CARBON DIOXIDE - CO2 28 mmol/L (21-32); CHLORIDE 102 mmol/L (101-111); CHOL/HDL RATIO 4.8 (<4.4); CHOLESTEROL 243 mg/dL; CREATININE 0.8 mg/dL (0.6-1.3); GFR - MDRD 72 (>89); GLUCOSE 104 mg/dL (74-104); HDL CHOLESTEROL 51 mg/dL; LDL CHOLESTEROL,CALCULATED 164 mg/dL; LDL/HDL RATIO 3.2 (<4.4); POTASSIUM 4.7 mmol/L (3.5-4.5); SODIUM 136 mmol/L (135-145); TOTAL PROTEIN 7.3 g/dL (6.4-8.9); TRIGLYCERIDES 142 mg/dL (48-352); VLDL CHOLESTEROL 28 mg/dL
[2023-02-03 08:58] LABS: THYROID STIMULATING HORMONE 2.03 uIU/mL (0.34-5.60)
[2023-02-03 10:07] LABS: ESTIMATED AVERAGE GLUCOSE 117 mg/dL (70-100); HEMOGLOBIN A1c% 5.7 % (4.27-6.07)
== END 2023-02-03 08:12 | disposition home or self-care (01) ==
LOC: LAB 08:11
PROVIDERS: ATTEND Nurse Practitioner Family
DX: R10.11 Right upper quadrant pain (principal); R07.9 Chest pain, unspecified; E78.5 Hyperlipidemia, unspecified; R73.01 Impaired fasting glucose
CPT/HCPCS: 36415; 80053; 80061; 83036; 83721; 84443; 85025

== ENCOUNTER 2023-02-23 08:17 | Outpatient (CLI) | payer OTHER ==
--- NOTE | 2023-02-23 09:55 | CARDIAC PROCEDURE NOTE ---
Stress Test Report Service Date: 02/23/23 Service Time: 09:30 Ordering Provider: Ricarda Molina ARNP Indication for Test: Assess chest discomfort. Significant Medical History: Trisha is referred for a treadmill stress echocardiogram today to evaluate her for an episode of significant chest discomfort that occurred a few weeks ago. She awoke at night to use the bathroom and on the way there felt an acute aching discomfort in her right lower chest, that subsequently radiated upward above her right breast and somewhat lower into the right upper quadrant area. Due to symptom resolution and right-sided occurrence of the pain she did not seek immediate Emergency Department evaluation but was seen in clinic a few days later. She also reports that this episode occurred in the context of a series of "heartburn" episodes that were qualitatively different in nature, localized in the epigastrium below her xiphoid process that resolved spontaneously. Some of these were in the context of having eaten a heavy or fatty meal. She has not tried any interventions for these symptoms. Her history is notable for having had an abnormal vasodilator stress myocardial perfusion study in 2018 for chest discomfort, for which details are not available. She underwent cardiac catheterization in March,, revealing normal LV ejection fraction and angiographically normal coronary arteries with normal left ventricular end- diastolic pressure. She has a history of hyperlipidemia that has not been treated for primary prevention in the absence of a more compelling cardiac risk factor profile (and in the setting of said normal coronary arteries by angiography). She suffered a knee injury in October and has been in physical therapy making progress with recovery, thus her exercise level has been decreased in the ensuing interval. She is currently walking up to 2 miles a few times per week, but has been avoiding hills to avoid aggravating her knee pain. She denies experiencing exertionally-related chest discomfort, unexpected shortness of breath and a loss of stamina. She comments that with exercise she has a lower than anticipated increase in heart rate. Cardiac Risk Factors: Positive for hyperlipidemia; negative for hypertension, diabetes, recent tobacco smoking and family history of coronary artery disease. Type of Stress Test: ETT with Echocardiography Procedure: -Exercise Treadmill Test- After signing informed consent, the patient underwent echo imaging at rest and then performed treadmill exercise using a John protocol. The patient exercised for 7 minutes 3 seconds and achieved a peak heart rate of 125 (79 percent predicted maximum heart rate for age), and an estimated workload of 8.7 METS. The test was terminated due to fatigue/shortness of breath. Resting heart rate: 76 Peak heart rate: 125 Abnormal response to exercise. Resting BP: 104/73 Peak BP: 168/66 Normal BP response to exercise. Rhythm during exercise: Sinus rhythm with PVCs that became increasingly frequent during the course of exercise, and included PVC couplets at peak exercise and one minute into recovery, with complete cessation thereafter. Symptoms: She denied experiencing any chest or upper abdominal pressure/discomfort or pain whatsoever. EKG at rest showed normal sinus rhythm with left axis deviation/left anterior fascicular block pattern, with a significant q wave in V1 and minimal R wave in V2 (latter findings consistent with age-indeterminate anteroseptal infarct). EKG at peak stress showed horizontal to downsloping ST depression in leads II,III,aVF,V4,V5,V6, meeting EKG diagnostic criteria for ischemia. In Recovery heart rate and blood pressure rapidly/normally returned towards resting baseline levels. Echo imaging, performed at rest and with stress, will be reported separately. IKirk MD, was present throughout this treadmill stress study and supervised it in its entirety. Summary: 1) Exercise tolerance slightly above average for age and sex as evidenced by GLENYS of -9%. 2) Abnormal resting EKG. 3) Adequate level of exercise was not achieved on this treadmill stress test. See comments below. 4) Normal BP response to exercise. 5) ST depression meeting diagnostic EKG criteria for ischemia were seen at peak stress. 6) Echo image interpretation reveals normal left ventricular size, wall thickness and systolic function, with appropriate hyperdynamic augmentation of all segments with exercise, indicating no evidence of prior infarct or inducible ischemia. No significant valvular abnormality or elevation of estimated pulmonary artery systolic pressure seen on screening study. See separate report for more details. Conclusions and Recommendations: 1) There were many reassuring features of this treadmill stress echocardiogram, most notably exercise time above average for age and sex, normal BP response to exercise and normal resting and peak exercise-associated wall motion by echo imaging. 2) There were concerning findings, including the abnormal resting EKG, PVCs that became inreasingly frequent with exercise and ST depression at peak exercise; the latter should be considered a false positive response in view of the normal hyperdynamic augmentation of all segments by echo. 3) Given that she did not achieve her target heart rate, the possibility of an ischemic response by echocardiography at a higher heart rate/cardiac workload cannot be excluded. 4) However, it is likely that many of these concerning features were present 5 years ago, when her cardiac catheterization revealed angiographically normal coronary arteries; in the absence of diabetes, significant family history, active tobacco smoking and typical anginal symptoms the likelihood that she has developed significant obstructive CAD is very low. 5) My recommendations to the patient included: obtain over the counter anti-acid medication (TUMS or Mylanta) for use prn for epigastric discomfort, schedule a follow up appointment with Ms Tariq, at which time her symptoms, response to antacids (or lack thereof) could be reviewed and options might include daily antacid use and/or further GI work up with RUQ ultrasound (to address gallstones) or consideration for UGI endoscopy to address esophagitis or peptic ulcer disease.
== END 2023-02-23 08:18 | disposition home or self-care (01) ==
LOC: DI 08:17
PROVIDERS: ATTEND Physician Assistant
DX: R07.9 Chest pain, unspecified (principal); I49.3 Ventricular premature depolarization; E78.5 Hyperlipidemia, unspecified; R94.31 Abnormal electrocardiogram [ECG] [EKG]
CPT/HCPCS: 93350

== ENCOUNTER 2023-05-25 08:00 | Outpatient (CLI) | payer OTHER ==
--- NOTE | 2023-05-25 12:13 | XRAY Report ---
PROCEDURE: Knee 4 View LT INDICATIONS: LEFT KNEE PAIN TECHNIQUE: 4 views of the knee(s) were acquired. COMPARISON: None. FINDINGS: Bones: No fractures or dislocations. No suspicious bony lesions. Tricompartmental Soft tissues: Small knee joint effusion. No suspicious soft tissue calcifications or masses. IMPRESSION: No acute bony abnormality. Mild to moderate tricompartmental osteoarthritis. Kellgren-Jonathon scale of osteoarthritis: 2. Reviewed by: Trey Giron MD on 05/25/2023 12:12 PM PDT Approved by: Trey Giron MD on 05/25/2023 12:12 PM PDT Station ID: [id number]
== END 2023-05-25 23:59 | disposition home or self-care (01) ==
LOC: DI.WOS 08:00
PROVIDERS: ATTEND Physician Assistant Surgical
DX: M17.12 Unilateral primary osteoarthritis, left knee (principal)

== ENCOUNTER 2023-06-11 07:41 | Outpatient (CLI) | payer OTHER ==
--- NOTE | 2023-06-11 09:51 | Mammography Report ---
BILATERAL DIGITAL DIAGNOSTIC MAMMOGRAM 3D/2D: 06/11/2023 CLINICAL: Patient returns for a 6 month follow up of the left breast, due for bilateral exam. Comparison is made to exams dated: 11/04/2022 mammogram, 02/13/2022 mammogram, 01/19/2022 mammogram, mammogram, 06/25/2016 mammogram, and 05/20/2015 mammogram - [facility]. Both breasts are heterogeneously dense, which may obscure small masses (category c / 51-75% glandular tissue). The left breast asymmetry seen on MLO is less prominent and smaller compared to prior exams. Not see n on additional views, and appears similar to glandular tissue. No other significant masses, calcifications, or other findings are seen in either breast. Mammograms are otherwise stable. IMPRESSION: PROBABLY BENIGN The asymmetry in the left breast most likely is fibroglandular tissue and is probably benign. There previously was no sonographic correlate. No need for ultrasound evaluation today. Right breast mammogram is stable. A follow-up left mammogram in 6 months is recommended to demonstrate stability. Findings and recommendations were conveyed to the patient at time of exam. Based on the Tyrer Cuzick model (a risk assessment model) the patient's lifetime risk is 10.3% and he r 10 year risk is 4.6%. According to the ACR, ACS, and NCCN guidelines, an annual breast MRI exam abimael ng with mammogram is recommended if the patient's lifetime risk is 20% or greater. This exam was interpreted at Station ID: [id number]. NOTE: For mammograms, a report in lay terms will be sent to the patient. Approximately 15% of breast malignancies will not be visualized mammographically. In the management of a palpable breast mass, a negative mammogram must not discourage biopsy of a clinically suspicious lesion. Electronically Signed By: Tamika ingram/:06/11/2023 08:37:50 ACR BI-RADS Category 3: Probably benign [id number] PARENCHYMAL PATTERN: (D) - The breast(s) demonstrate(s) heterogeneously dense fibroglandular parjoanne jacobson. BI-RADS CATEGORY: (3) - 3 Mammogram [id number] 6 month follow-up LATERALITY: (L)
== END 2023-06-11 07:42 | disposition home or self-care (01) ==
LOC: DI 07:41
PROVIDERS: ATTEND Physician Assistant
DX: R92.8 Other abnormal and inconclusive findings on diagnostic imaging of breast (principal); R92.333 Mammographic heterogeneous density, bilateral breasts

== ENCOUNTER 2023-06-17 16:24 | Outpatient (CLI) | payer OTHER ==
--- NOTE | 2023-06-18 14:23 | XRAY Report ---
PROCEDURE: Lumbar Spine 2-3V INDICATIONS: BACK PAIN TECHNIQUE: 3 views of the lumbar spine were acquired. COMPARISON: None. FINDINGS: Bones: 5 [id number] vertebrae are present. There is grade 1 anterolisthesis of L4 on L5, and t race retrolisthesis of L5 on S1. Mild levocurvature. No vertebral body compression fractures. No barger spicious bony lesions. Mild degenerative disease throughout cervical spine. Moderate facet arthropat hy at L3-L4, L5 L5 and L5-S1. Osteopenia. Soft tissues: Overlying bowel gas pattern is normal. No suspicious soft tissue calcifications. IMPRESSION: 1. Mild degenerative disc disease and moderate facet arthropathy in lumbar spine. 2. Osteopenia. Reviewed by: Donna Dunne MD on 06/18/2023 2:22 PM PDT Approved by: Donna Dunne MD on 06/18/2023 2:22 PM PDT Station ID: [id number]
== END 2023-06-17 16:25 | disposition home or self-care (01) ==
LOC: DI 16:24
PROVIDERS: ATTEND Registered Nurse
DX: M47.816 Spondylosis without myelopathy or radiculopathy, lumbar region (principal); M47.817 Spondylosis without myelopathy or radiculopathy, lumbosacral region; M85.88 Other specified disorders of bone density and structure, other site